=== PATIENT | male | born 1940 | race Caucasian/White ===

== ENCOUNTER 2018-01-12 09:47 | Emergency (ER) | payer MEDICARE, OTHER ==
[~2018-01-12] VITALS: Ht 195.6 cm; Wt 93.2 kg
[~2018-01-12 09:47] MED LIST: ASPIRIN 32325 MG/TAB PO; PLAVIX 75MG TAB75 MG PO
[2018-01-12 09:50] VITALS: TEMP 97.6
[2018-01-12] MEDS ORDERED: SINEMET 25/101 UDTAB PO (10:02)
[2018-01-12] MEDS ORDERED: WELLBUTRIN SR150 M1 PO (10:03)
[2018-01-12] MEDS ORDERED: FLEXERIL 1010 MG/TAB PO (12:26)
[2018-01-12] MEDS ORDERED: NORCO 325 MG-51 TAB PO (12:26)
[2018-01-12 12:33] VITALS: BP 131/78; PULSE 80
== END 2018-01-12 12:33 | disposition home or self-care (01) ==
LOC: COL.ER 09:47
DX: S16.1XXA Strain of muscle, fascia and tendon at neck level, initial encounter (principal); G20 Parkinson's disease; G70.00 Myasthenia gravis without (acute) exacerbation; Z79.82 Long term (current) use of aspirin; Z98.890 Other specified postprocedural states; W19.XXXA Unspecified fall, initial encounter

== ENCOUNTER → 2019-05-13 | Outpatient (CLI) | payer MEDICARE, OTHER ==
[~2019-05-13] MED LIST changes: +FLEXERIL 1010 MG/TAB PO; +NORCO 325 MG-51 TAB PO; +SINEMET 25/101 UDTAB PO; +WELLBUTRIN SR150 M1 PO
== END ==
LOC: COL.RAD 10:29
DX: M25.022 Hemarthrosis, left elbow (principal); M19.032 Primary osteoarthritis, left wrist; W19.XXXA Unspecified fall, initial encounter

== ENCOUNTER 2021-03-10 15:56 | Emergency (ER) | payer MEDICARE, OTHER ==
[~2021-03-10] VITALS: Ht 195.6 cm; Wt 99.1 kg
[2021-03-10 16:30] VITALS: BP 136/64; PULSE 84; TEMP 97.6
== END 2021-03-10 16:48 | disposition home or self-care (01) ==
LOC: COL.ER 15:56
DX: S01.01XA Laceration without foreign body of scalp, initial encounter (principal); G20 Parkinson's disease; G70.01 Myasthenia gravis with (acute) exacerbation; Z79.899 Other long term (current) drug therapy; W22.8XXA Striking against or struck by other objects, initial encounter

== ENCOUNTER 2021-04-11 15:15 | Outpatient (CLI) | payer MEDICARE, OTHER ==
[~2021-04-11] VITALS: Ht 195.6 cm; Wt 107.8 kg
[2021-04-11 15:59] VITALS: BP 137/82; PULSE 102; TEMP 98.6
== END 2021-04-11 16:10 | disposition home or self-care (01) ==
LOC: EUO 15:15
DX: N39.43 Post-void dribbling (principal)